=== PATIENT | female | born 1975 | race Caucasian/White ===

== ENCOUNTER 2017-12-04 17:14 | Emergency (ER) | payer MEDICAID ==
[2016-04-29 11:33] VITALS: Wt 110.7 kg
[~2017-12-04 17:14] MED LIST: AA/A14DR7 OT; ACET-1966 PO; ALB0.5 INH; ALBU8.5H12 IH; AMI25 PO; AMO500 PO; ASPI-1 PO; AUG875 PO; CELE50CA2 PO; CEP500 PO; CEPH500T7 PO; CYC10 PO; DICY20TA70 PO; GAB300 PO; HYDR-3087 PO; HYDR-3250 PO; HYDR-4225 PO; HYDR-4309 PO; IBU200 PO; IBU800 PO; IBUP-1671 PO; IBUP600T22 PO; IBUPROFEN; KET10 PO; LOR5 PO; LOR7.5/325 PO; MID PO; NAP550 PO; NAPR220T52 PO; NO; NO MEDS; NO ROUTINE MEDS; ONDA4TAB PO; ONDA4TAB97 PO; OXYC-865 PO; OXYC10TA67 PO; OXYC500S2 PO; PANT40TA65 PO; PER PO; PRED20TA6 PO; PRO25 PO; PROM-100 PO; PROM-110 PO; ROBC PO; SCOT TD; TRA50 FT; TRAM-420; TRAM-420 PO; [UNRECOGNIZED DRUG - CODE] PO
--- NOTE | 2017-12-04 17:29 | ER Report ---
History and Physical Time Seen By MD: 17:29 Hx. of Stated Complaint: Headache visual changes HPI/ROS Patient is a 42-year-old female has a long history of migraines states she had a migraine type headache earlier today fullness in her sinuses and her frontal and maxillary sinuses took Motrin and Benadryl at home she felt like this relieved it for a period time started having sharp shooting pains in her right frontal sinus area states some visual changes in her right eye no problems walking or talking no nothing focal neurologically Remainder of the 14 system rev: Yes Allergies: Coded Allergies: Sulfa (Sulfonamide Antibiotics) (Verified Allergy, Severe, HIVES, 01/03/17) BEE STINGS (Verified Allergy, Unknown, AIRWAY OBSTRUCTION, 01/03/17) celecoxib (Verified Allergy, Unknown, 01/03/17) Home Meds Active Scripts Amoxicillin/Pot Clav 875-125 Mg Tab (AUGMENTIN 875-125 TABLET) 1 Each Tablet, 1 TAB PO Q12H for 7 Days, #14 TAB Prov:JOAN CHAPARRO 12/04/17 Reported Medications Cephalexin 500 Mg Tab (KEFLEX 500 MG TAB) 500 Mg Tablet, 500 MG PO Q6H, #28 TAB 12/04/17 Discontinued Scripts Dicyclomine Hcl (DICYCLOMINE HCL) 20 Mg Tablet, 1 TAB PO QID, #120 TAB 3 Refills Prov:REGIS TENA MD 03/17/17 Past Medical/Surgical History Migraine headache Hx Smoking: Yes (1/2 ppd X 20+ YRS ) Smoking Status: Current: Every Day Smoker Exposure to Second Hand Smoke?: No Hx Substance Use Disorder: No Hx Alcohol Use: Yes (VERY RARE) Constitutional Vital Sign - Last 24 Hours 12/04/17 12/04/17 12/04/17 12/04/17 17:14 17:29 17:31 17:44 Pulse ? 78 B/P (MAP) 145/86 (105) Pulse Ox 94 12/04/17 12/04/17 12/04/17 12/04/17 17:59 18:08 18:14 18:29 Pulse 81 ??? 68 B/P (MAP) 128/71 (90) Pulse Ox 94 90 12/04/17 12/04/17 18:44 18:59 Pulse 70 70 Pulse Ox 96 96 Physical Exam 42-year-old female alert and oriented mild distress GCS of 15 cranial nerves grossly intact 2-12 pupils equal round reactive to light EOM intact tympanic membrane non-reddened throat is non-reddened neck is supple no JVD heart rate regular no murmurs rubs or gallops lungs are clear to auscultation abdomen is soft bowel sounds 4 quadrants Medical Decision Making Data Points Result Diagram: 12/04/17 1800 12/04/17 1800 Laboratory Hematology Test 12/04/17 18:00 Red Blood Count 4.91 M/uL (4.17-5.56) Mean Corpuscular Volume 89.9 fL (80.0-96.0) Mean Corpuscular Hemoglobin 30.3 pg (26.0-33.0) Mean Corpuscular Hemoglobin Concent 33.7 g/dL (32.0-36.0) Red Cell Distribution Width 14.6 % (11.5-14.5) Mean Platelet Volume 7.4 fL (7.2-11.1) Neutrophils (%) (Auto) 61.9 % (39.4-72.5) Lymphocytes (%) (Auto) 30.6 % (17.6-49.6) Monocytes (%) (Auto) 4.8 % (4.1-12.4) Eosinophils (%) (Auto) 2.0 % (0.4-6.7) Basophils (%) (Auto) 0.7 % (0.3-1.4) Nucleated RBC Relative Count (auto) 0.1 /100WBC Neutrophils # (Auto) 7.8 K/uL (2.0-7.4) Lymphocytes # (Auto) 3.9 K/uL (1.3-3.6) Monocytes # (Auto) 0.6 K/uL (0.3-1.0) Eosinophils # (Auto) 0.3 K/uL (0.0-0.5) Basophils # (Auto) 0.1 K/uL (0.0-0.1) Nucleated RBC Absolute Count (auto) 0.01 K/uL Sodium Level 140 mmol/L (137-145) Potassium Level 3.7 mmol/L (3.5-5.0) Chloride Level 103 mmol/L (98-107) Carbon Dioxide Level 23 mmol/L (22-31) Blood Urea Nitrogen 7 mg/dl (7-18) Creatinine 0.60 mg/dl (0.52-1.04) Glomerular Filtration Rate Calc > 60.0 Random Glucose 89 mg/dl (75-110) Calcium Level 8.8 mg/dl (8.4-10.2) Total Bilirubin 0.4 mg/dl (0.2-1.3) Aspartate Amino Transf (AST/SGOT) 24 U/L (0-35) Alanine Aminotransferase (ALT/SGPT) 35 U/L (0-56) Alkaline Phosphatase 68 U/L (0-126) C-Reactive Protein 2.5 mg/dl (<1.0) Total Protein 7.1 gm/dl (6.3-8.2) Albumin 3.6 g/dl (3.5-5.0) Chemistry Test 12/04/17 18:00 White Blood Count 12.6 k/uL (4.5-11.0) Red Blood Count 4.91 M/uL (4.17-5.56) Hemoglobin 14.9 g/dL (12.0-16.0) Hematocrit 44.1 % (34.0-47.0) Mean Corpuscular Volume 89.9 fL (80.0-96.0) Mean Corpuscular Hemoglobin 30.3 pg (26.0-33.0) Mean Corpuscular Hemoglobin Concent 33.7 g/dL (32.0-36.0) Red Cell Distribution Width 14.6 % (11.5-14.5) Platelet Count 341 K/uL (150-450) Mean Platelet Volume 7.4 fL (7.2-11.1) Neutrophils (%) (Auto) 61.9 % (39.4-72.5) Lymphocytes (%) (Auto) 30.6 % (17.6-49.6) Monocytes (%) (Auto) 4.8 % (4.1-12.4) Eosinophils (%) (Auto) 2.0 % (0.4-6.7) Basophils (%) (Auto) 0.7 % (0.3-1.4) Nucleated RBC Relative Count (auto) 0.1 /100WBC Neutrophils # (Auto) 7.8 K/uL (2.0-7.4) Lymphocytes # (Auto) 3.9 K/uL (1.3-3.6) Monocytes # (Auto) 0.6 K/uL (0.3-1.0) Eosinophils # (Auto) 0.3 K/uL (0.0-0.5) Basophils # (Auto) 0.1 K/uL (0.0-0.1) Nucleated RBC Absolute Count (auto) 0.01 K/uL Glomerular Filtration Rate Calc > 60.0 Calcium Level 8.8 mg/dl (8.4-10.2) Total Bilirubin 0.4 mg/dl (0.2-1.3) Aspartate Amino Transf (AST/SGOT) 24 U/L (0-35) Alanine Aminotransferase (ALT/SGPT) 35 U/L (0-56) Alkaline Phosphatase 68 U/L (0-126) C-Reactive Protein 2.5 mg/dl (<1.0) Total Protein 7.1 gm/dl (6.3-8.2) Albumin 3.6 g/dl (3.5-5.0) ED Course/Re-evaluation ED Course At the patient's inflammatory markers Repp CRP is 2.5 with treatment in the emergency room patient is pain-free we'll treat her sinus thickening her CAT scan with antibiotic she is to follow-up with her primary care physician with recurrent headaches to follow-up with the elevated inflammatory markers Re-evaluation Pain-free on dismissal list and told to follow-up with her primary care provider in a week if she has recurrent headaches to return to the emergency room Decision to Disposition Date: Dec 04, 2017 Decision to Disposition Time: 19:05 Depart Departure Latest Vital Signs Vital Signs Date Time Temp Pulse Resp B/P (MAP) Pulse Ox O2 Delivery O2 Flow Rate FiO2 12/04/17 18:59 70 96 12/04/17 18:08 128/71 (90) Impression: Primary Impression: Migraine Additional Impression: Sinusitis Condition: Improved Disposition: HOME OR SELF-CARE Referrals: VIOLETA FAITH (PCP) 2 Days New Scripts Amoxicillin/Pot Clav 875-125 Mg Tab (AUGMENTIN 875-125 TABLET) 1 Each Tablet 1 TAB PO Q12H for 7 Days, #14 TAB Prov: JOAN CHAPARRO 12/04/17 Patient Instructions: Migraine Headache (ED), Sinusitis (ED) Problem Qualifiers JOAN CHAPARRO Dec 04, 2017 17:29
[2017-12-04] MEDS ORDERED: NS(*) 0.9% 1000 ML BAG 1,000 ML IV ONE (17:40)
[2017-12-04] MEDS ORDERED: PROMETHAZINE 25 MG/ML 1 ML AMP IVP ONE (17:40)
[2017-12-04] MEDS ORDERED: METOCLOPRAMIDE 10 MG/2 ML SDV IVP ONE (17:40)
[2017-12-04] MEDS ORDERED: KETOROLAC 30 MG/ML VIAL IVP ONE (17:40)
[2017-12-04 18:08] VITALS: BP 128/71
[2017-12-04] MEDS ORDERED: CEPH500T7 PO (18:08)
[2017-12-04 18:15] LABS: PLATELET COUNT, AUTOMATED 341 K/uL (150-450)
--- NOTE | 2017-12-04 18:39 | RADIOLOGY IMAGING REPORT ---
FACILITY: [facility] PATIENT NAME: Flory Burton : 1975 MR: [id number] V: [id number] EXAM DATE: ORDERING PHYSICIAN: JOAN CHAPARRO TECHNOLOGIST: Location: [facility] [place] Patient: Flory Burton : 1975 Visit/Account:[id number] Date of Sevice: 12/04/2017 EXAMINATION: Head CT without intravenous contrast HISTORY: Headache. COMPARISON: 07/05/2013. TECHNIQUE: Contiguous axial images were obtained from the skull base to the vertex without intraven ous contrast. Sagittal and coronal reformatted images are also submitted. One of the following dose optimization techniques was utilized in the performance of this exam: Autom ated exposure control; adjustment of the mA and/or kV according to the patient's size; or use of an i terative reconstruction technique. Specific details can be referenced in the facility's radiology C T exam operational policy. FINDINGS: Brain and intracranial structures: Ventricles, sulci, and cisterns are normal in size. Severino-white ma tter differentiation is maintained. No midline shift, acute hemorrhage, acute infarct, or mass. Calvarium / scalp: Negative. Skull base / visualized face: Rightward deviation of the nasal septum. Visualized sinuses / orbits: Trace mucosal thickening in the left maxillary sinus and in the right f rontal ethmoidal recess. IMPRESSION: No acute intracranial abnormality. Report Dictated By: Oleksandr Elizalde MD at 12/04/2017 6:31 PM Report E-Signed By: Oleksandr Elizalde MD at 12/04/2017 6:36 PM WSN:[id number]
[2017-12-04] MEDS ORDERED: AMOX-559 PO (19:03)
== END 2017-12-04 19:20 | disposition home or self-care (01) ==
LOC: ER 18:00
DX: G43.909 Migraine, unspecified, not intractable, without status migrainosus (principal); J32.0 Chronic maxillary sinusitis
CPT/HCPCS: 70450; 85025; 85651; 86140; 96361; 96374; 96375; 99284; J1885; J2550; J2765; J7030; 82040; 82247; 82310; 82374; 82435; 82565; 82947; 84075; 84132; 84155; 84295; 84450; 84460; 84520

== ENCOUNTER 2018-03-20 21:05 | Emergency (ER) | payer MEDICAID ==
[2016-04-29 11:33] VITALS: Wt 104.3 kg
[~2018-03-20 21:05] MED LIST changes: +AMOX-559 PO
[2018-03-20 21:10] VITALS: BP 157/85
--- NOTE | 2018-03-20 21:11 | ER Report ---
History and Physical Time Seen By MD: 21:11 HPI/ROS CHIEF COMPLAINT: Left foot pain HISTORY OF PRESENT ILLNESS: 43-year-old female presents ambulatory to the ER laying of severe left foot pain. She notes throbbing when she stands and walks. She describes an injury 2 weeks ago where she stepped on a tennis ball in the dark and rolled her ankle. She said it bothered her for 3-4 days, but then he got better. She's been taking some ibuprofen now she has throbbing pain that radiates on the top of the foot up her left. She notes no ankle swelling. She denies history of gout. REVIEW OF SYSTEMS: Respiratory: No cough, no dyspnea. Cardiovascular: No chest pain, no palpitations. Gastrointestinal: No vomiting, no abdominal pain. Musculoskeletal: As above Allergies: Coded Allergies: Sulfa (Sulfonamide Antibiotics) (Verified Allergy, Severe, HIVES, 03/20/18) BEE STINGS (Verified Allergy, Unknown, AIRWAY OBSTRUCTION, 03/20/18) celecoxib (Verified Allergy, Unknown, 03/20/18) Home Meds Active Scripts Tramadol Hcl (TRAMADOL HCL) 50 Mg Tablet, 1 TAB PO Q6H Y for PAIN, #12 MG TAKE ONE TO TWO TABLETS BY MOUTH EVERY FOUR TO SIX HOURS NEEDED Prov:AYO ORTEGA DO 03/20/18 Discontinued Reported Medications Cephalexin 500 Mg Tab (KEFLEX 500 MG TAB) 500 Mg Tablet, 500 MG PO Q6H, #28 TAB 12/04/17 Discontinued Scripts Amoxicillin/Pot Clav 875-125 Mg Tab (AUGMENTIN 875-125 TABLET) 1 Each Tablet, 1 TAB PO Q12H for 7 Days, #14 TAB Prov:JOAN CHAPARRO 12/04/17 Reviewed Nurses Notes: Yes Old Medical Records Reviewed: Yes Hx Smoking: Yes (1/2 ppd X 20+ YRS ) Smoking Status: Current: Every Day Smoker Exposure to Second Hand Smoke?: No Hx Substance Use Disorder: No Hx Alcohol Use: Yes (VERY RARE) Constitutional Vital Sign - Last 24 Hours 03/20/18 21:10 Temp 98.7 Pulse 101 Resp 18 B/P (MAP) 157/85 Pulse Ox 95 O2 Delivery Room Air Physical Exam General appearance: Alert no distress. Respiratory: Chest is non tender, lungs are clear to auscultation. Cardiac: Regular rate and rhythm Extremities: Examination of the left foot reveals a neurovascularly intact foot. There is no soft tissue swelling or tenderness noted. There is some pain with plantar flexion of the toes. DIFFERENTIAL DIAGNOSIS: After history and physical exam differential diagnosis was considered for sprain, strain, fracture, dislocation, contusion, tenosynovitis, tendinitis Medical Decision Making EKG/Imaging Imaging X-ray: Left foot, 3 views was obtained. I viewed the images myself on the PACS system. My interpretation of the images is: No fracture no dislocation or malalignment. The radiologist interpretation had no clinically significant variation from this interpretation. ED Course/Re-evaluation ED Course Patient was admitted to an examination room. H&P was done. The differential diagnoses was considered. On clinical examination. Patient has pain to her left anterior ankle. She notes increased pain with plantar flexion of the toes. She notes pain rating at the lateral compartment of her leg. I suspect that she altered her gait to protect her ankle from the previous injury and his overuse syndrome of these muscles and tendons. Diagnostic x-rays were performed. There is no local fractures noted. Patient's placed in a Cam Walker boot to rest her leg. He is advised ibuprofen 600 mg 3 times daily. She 's given a prescription of tramadol for temporary pain relief. Patient advised to follow-up with primary care if unimproved in 3-5 days. Decision to Disposition Date: Mar 20, 2018 Decision to Disposition Time: 21:34 Depart Departure Latest Vital Signs Vital Signs Date Time Temp Pulse Resp B/P (MAP) Pulse Ox O2 Delivery O2 Flow Rate FiO2 03/20/18 21:10 98.7 101 18 157/85 95 Room Air Impression: Primary Impression: Left ankle tendinitis Condition: Improved Disposition: HOME OR SELF-CARE Referrals: VIOLETA FAITH (PCP) New Scripts Tramadol Hcl (TRAMADOL HCL) 50 Mg Tablet 1 TAB PO Q6H Y for PAIN, #12 MG TAKE ONE TO TWO TABLETS BY MOUTH EVERY FOUR TO SIX HOURS NEEDED Prov: AYO ORTEGA DO 03/20/18 Patient Instructions: Tendinitis (ED) Additional Instructions: Take ibuprofen 200 mg 3 tablets 3 times a day with food Apply heating pad to the affected area Rest as much as possible Follow-up with primary care if unimproved in 3-5 days. AYO ORTEGA DO Mar 20, 2018 21:11
[2018-03-20] MEDS ORDERED: TRAM-420 PO (21:38)
[2018-03-20] MEDS ORDERED: traMADol 50 MG TAB TH 2 TAB/BOTTLE PO ONE (21:40)
--- NOTE | 2018-03-20 22:22 | RADIOLOGY IMAGING REPORT ---
FACILITY: [facility] PATIENT NAME: Flory Burton : 1975 MR: [id number] V: [id number] EXAM DATE: ORDERING PHYSICIAN: AYO ORTEGA TECHNOLOGIST: Location: [facility] [place] Patient: Flory Burton : 1975 Visit/Account:[id number] Date of Sevice: 03/20/2018 EXAMINATION: Left foot 3 views HISTORY: Injury. COMPARISON: None. FINDINGS: No evidence of acute fracture or dislocation about the left foot. Normal alignment. Joint spaces ar e preserved. Small plantar and Achilles calcaneal spurs. Soft tissues are unremarkable. IMPRESSION: No acute osseous findings in the left foot. Report Dictated By: Kodi Boateng MD at 03/20/2018 10:16 PM Report E-Signed By: Kodi Boateng MD at 03/20/2018 10:19 PM WSN:[id number]
== END 2018-03-20 22:18 | disposition home or self-care (01) ==
LOC: ER 21:13
DX: M77.52 Other enthesopathy of left foot and ankle (principal); F17.210 Nicotine dependence, cigarettes, uncomplicated
CPT/HCPCS: 73630; 99283; C9399